=== PATIENT | male | born 1960 | race Caucasian/White ===

== ENCOUNTER 2019-10-21 18:17 | Emergency (ER) | payer MEDICAID ==
[~2019-10-21] VITALS: Ht 190.5 cm; Wt 100.3 kg
[2019-10-21 18:27] VITALS: BP 103/73
--- NOTE | 2019-10-21 18:37 | NUR ---
PT REFUSES NECK BRACE. AMBULATES WELL.
--- NOTE | 2019-10-21 18:44 | NUR ---
FUNERAL SERVICE MANAGER: PT TO ROOM FROM [facility]
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
[2019-10-21] MEDS ORDERED: NEOSPORIN OINT. PKT 1 PACKET ONE (19:30)
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
== END 2019-10-21 19:48 | disposition home or self-care (01) ==
LOC: ED 19:30
DX: S08.0XXA Avulsion of scalp, initial encounter (principal); S16.1XXA Strain of muscle, fascia and tendon at neck level, initial encounter; V49.40XA Driver injured in collision with unspecified motor vehicles in traffic accident, initial encounter; Y93.89 Activity, other specified; Y92.488 Other paved roadways as the place of occurrence of the external cause; Y99.8 Other external cause status
CPT/HCPCS: 99282